=== PATIENT | female | born 1945 | race Caucasian/White ===

== ENCOUNTER → 2023-09-13 12:16 | Outpatient (CLI) | payer MEDICARE, OTHER, SELFPAY ==
--- NOTE | 2023-09-13 12:18 | DI.RAD.S_ITS ---
PROCEDURE: XR CERVICAL SPINE 2V OR 3V INDICATIONS: neck pain TECHNIQUE: 3 view(s) of the cervical spine were acquired. COMPARISON: None. FINDINGS: Bones: No fractures or dislocations to the T1 level. The lateral masses of C1 appear intact on the odontoid view. No suspicious bony lesions. Severe C5-C6, C6-C7 and C7-T1 degenerative disc disease. Moderate C4-C5 degenerative disc disease. Mild facet hypertrophy throughout the cervical spine. Soft tissues: No prevertebral soft tissue swelling. IMPRESSION: 1. Multilevel degenerative disc disease. 2. Multilevel facet arthropathy. 3. No fracture. No acute osseous lesion. If symptoms and/or clinical suspicion for pathology persists, evaluation with MRI should be considered for further assessment. Dictated by: Beth Zhou MD, PhD on 09/13/2023 at 13:32 Approved by: Beth Zhou MD, PhD on 09/13/2023 at 13:33
--- NOTE | 2023-09-13 12:18 | DI.RAD.S_ITS ---
PROCEDURE: XR CHEST 2V INDICATIONS: cough TECHNIQUE: 2 views of the chest were acquired. COMPARISON: [facility], , CHEST 2 VIEW, 07/03/2012, 15:48. FINDINGS: Surgical changes and devices: None. Lungs and pleura: Increased opacification in the lung bases which could represent atelectasis, aspiration or pneumonia. No pleural effusions or pneumothorax. Mediastinum: Mediastinal contours are normal. Heart size is normal. Bones and chest wall: No suspicious bony abnormalities. Soft tissues appear unremarkable. IMPRESSION: Bibasilar opacities which could represent atelectasis, aspiration or pneumonia. Dictated by: Beth Zhou MD, PhD on 09/13/2023 at 13:31 Approved by: Beth Zhou MD, PhD on 09/13/2023 at 13:32
--- NOTE | 2023-09-13 12:46 | DI.RAD.S_ITS ---
PROCEDURE: XR LUMBAR SPINE 2-3V INDICATIONS: scoliosis TECHNIQUE: 3 views of the lumbar spine were acquired. COMPARISON: None. FINDINGS: Bones: 5 [id number] vertebrae are present. There is mild, approximately 5 millimeters of L4-L5 degenerative anterolisthesis. Mild, approximately 5? of convex left lumbar spine curvature. No vertebral body compression fractures. No suspicious bony lesions. Severe L2-L3, L3-L4 and L5-S1 degenerative disc disease. Moderate L5-S1 degenerative disc disease. Moderate L2-L3, L3-L4, L4-L5 and L5-S1 degenerative disc disease. Soft tissues: Overlying bowel gas pattern is normal. No suspicious soft tissue calcifications. IMPRESSION: 1. Multilevel degenerative disc disease. 2. Multilevel facet arthropathy. 3. No fracture. No acute osseous lesion. If symptoms and/or clinical suspicion for pathology persists, evaluation with MRI should be considered for further assessment. 4. Grade 1 L4-L5 degenerative spondylolisthesis. Dictated by: Beth Zhou MD, PhD on 09/13/2023 at 13:33 Approved by: Beth Zhou MD, PhD on 09/13/2023 at 13:35
--- NOTE | 2023-09-13 12:46 | DI.RAD.S_ITS ---
PROCEDURE: XR THORACIC SPINE 2V INDICATIONS: scoliosis TECHNIQUE: 3 views of the thoracic spine were acquired. COMPARISON: None. FINDINGS: Bones: No fractures or dislocations. Mild, approximately 9? of convex right thoracic spine curvature. No suspicious bony lesions. 12 pairs of ribs are noted, and appear intact where visualized. Severe multilevel degenerative disc disease. Moderate facet arthropathy in the lower lumbar spine. Mild facet arthropathy in the upper and midthoracic spine. Soft tissues: No paravertebral stripe thickening. IMPRESSION: 1. Multilevel degenerative disc disease. 2. Multilevel facet arthropathy. 3. No fracture. No acute osseous lesion. If symptoms and/or clinical suspicion for pathology persists, evaluation with MRI should be considered for further assessment. 4. Mild, approximately 9? of convex right thoracic spine curvature. Dictated by: Beth Zhou MD, PhD on 09/13/2023 at 13:35 Approved by: Beth Zhou MD, PhD on 09/13/2023 at 13:37
[2023-09-13 13:08] LABS: Hematocrit 43.2 % (36-46); Hemoglobin 14.8 g/dL (12.0-16.0); Mean Corpuscular HGB Conc 34.2 % (30-36); Mean Corpuscular Hemoglobin 30.9 PG (26-34); Mean Corpuscular Volume 90.4 fL (80-100); Platelet Count 204 X10^3/uL (150-400); Red Blood Cell Count 4.77 X10^6/uL (4.0-5.2); Red Cell Distribution Width 14.1 % (11.6-14.8); White Blood Cell Count 7.6 X10^3/uL (4.5-11.0)
[2023-09-13 13:39] LABS: Alanine Aminotransferase 19 IU/L (<35); Albumin 4.7 g/dL (3.5-5.0); Albumin Globulin Ratio 1.5 (1.0-2.8); Alkaline Phosphatase 60 U/L (38-126); Aspartate Aminotransferase 29 IU/L (14-36); BUN Creatinine Ratio 16.3 (6-22); Bilirubin Total 0.5 mg/dL (0.2-1.3); Blood Urea Nitrogen 17 mg/dL (7-17); Calcium 10.3 mg/dL (8.4-10.2); Carbon Dioxide 29 mmol/L (22-32); Chloride 99 mmol/L (98-107); Cholesterol 268 mg/dL (140-199); Estimated Glomerular Filt Rate 56 mL/min (>60); Globulin 3.1 g/dL (1.7-4.1); Glucose 85 mg/dL (80-110); HDL Cholesterol 82 mg/dL (40-60); HEMOLYSIS < 15 (0-50); LDL Cholesterol Calculated 165 mg/dL (<100); Potassium 4.3 mmol/L (3.4-5.1); Sodium 137 mmol/L (137-145); Total Protein 7.8 g/dL (6.3-8.2); Triglycerides 105 mg/dL (35-150)
[2023-09-13 14:09] LABS: TSH w/ Reflex to FT4 1.78 uIU/mL (0.47-4.68)
== END ==
PROVIDERS: PCP Internal Medicine; Referring Provider Internal Medicine; Visit Provider Internal Medicine
DX: R05.9 Cough, unspecified (principal); E78.2 Mixed hyperlipidemia; M48.9 Spondylopathy, unspecified; M41.9 Scoliosis, unspecified; E03.9 Hypothyroidism, unspecified; M51.34 Other intervertebral disc degeneration, thoracic region; M47.814 Spondylosis without myelopathy or radiculopathy, thoracic region; M43.8X4 Other specified deforming dorsopathies, thoracic region; M51.36 Other intervertebral disc degeneration, lumbar region; M47.816 Spondylosis without myelopathy or radiculopathy, lumbar region; M43.16 Spondylolisthesis, lumbar region; M50.30 Other cervical disc degeneration, unspecified cervical region; M47.812 Spondylosis without myelopathy or radiculopathy, cervical region
CPT/HCPCS: 36415; 71046; 72040; 72070; 72100; 80053; 80061; 84443; 85027

== ENCOUNTER → 2024-03-18 14:46 | Outpatient (CLI) | payer MEDICARE, OTHER, SELFPAY ==
--- NOTE | 2024-03-18 14:48 | DI.RAD.S_ITS ---
PROCEDURE: XR CHEST 2V INDICATIONS: cough TECHNIQUE: 2 views of the chest were acquired. COMPARISON: [facility], CR, XR CHEST 2V, 09/13/2023, 12:29. FINDINGS: Surgical changes and devices: None. Lungs and pleura: Lungs are clear. No pleural effusions or pneumothorax. Mediastinum: Mediastinal contours are normal. Heart size is normal. Bones and chest wall: No suspicious bony abnormalities. Soft tissues appear unremarkable. IMPRESSION: No acute cardiopulmonary pathology. Dictated by: Westley Gan M.D. on 03/18/2024 at 17:18 Approved by: Westley Gan M.D. on 03/18/2024 at 17:18
--- NOTE | 2024-03-18 14:48 | DI.RAD.S_ITS ---
PROCEDURE: XR CERVICAL SPINE 2V OR 3V INDICATIONS: neck pain TECHNIQUE: 3 view(s) of the cervical spine were acquired. COMPARISON: [facility], CR, XR CERVICAL SPINE 2V OR 3V, 09/13/2023, 12:31. FINDINGS: Bones: No fractures or dislocations to the T1 level. Straightening and mild reversal of normal cervical lordosis is seen. There is 3 millimeter anterolisthesis of C3 on C4 and 2 millimeter anterolisthesis of C4 on C5. Loss of disc height, degenerative endplate changes and bilateral facet hypertrophic changes are noted throughout cervical spine more notably at C4-5 through C6-7 levels. The lateral masses of C1 appear intact on the odontoid view. No suspicious bony lesions. Soft tissues: No prevertebral soft tissue swelling. IMPRESSION: No cervical spine fracture or dislocation. Moderate degenerative disc disease in mid to lower cervical spine as described above. Grade 1 anterolisthesis at C3-4 and C4-5 levels as above. Dictated by: Westley Gan M.D. on 03/18/2024 at 17:22 Approved by: Westley Gan M.D. on 03/18/2024 at 17:26
[2024-03-18 17:26] LABS: Aspartate Aminotransferase 29 IU/L (14-36); BUN Creatinine Ratio 23.1 (6-22); Blood Urea Nitrogen 24 mg/dL (7-17); Calcium 9.5 mg/dL (8.4-10.2); Carbon Dioxide 29 mmol/L (22-32); Chloride 107 mmol/L (98-107); Cholesterol 207 mg/dL (140-199); Estimated Glomerular Filt Rate 55 mL/min (>60); Glucose 95 mg/dL (80-110); HDL Cholesterol 77 mg/dL (40-60); HEMOLYSIS < 15 (0-50); LDL Cholesterol Calculated 110 mg/dL (<100); Potassium 4.3 mmol/L (3.4-5.1); Sodium 140 mmol/L (137-145); Triglycerides 99 mg/dL (35-150)
[2024-03-18 18:12] LABS: TSH w/ Reflex to FT4 1.62 uIU/mL (0.47-4.68)
== END ==
PROVIDERS: PCP Internal Medicine; Referring Provider Internal Medicine; Visit Provider Internal Medicine
DX: M50.320 Other cervical disc degeneration, mid-cervical region, unspecified level (principal); M43.12 Spondylolisthesis, cervical region; M48.9 Spondylopathy, unspecified; E78.2 Mixed hyperlipidemia; R05.9 Cough, unspecified; E03.9 Hypothyroidism, unspecified
CPT/HCPCS: 36415; 71046; 72040; 80048; 80061; 84443; 84450

== ENCOUNTER → 2024-09-04 14:23 | Outpatient (CLI) | payer MEDICARE, OTHER, SELFPAY ==
--- NOTE | 2024-09-04 14:25 | DI.RAD.S_ITS ---
PROCEDURE: XR KNEE LT 3V INDICATIONS: left knee pain TECHNIQUE: Four views views of the knee were acquired. COMPARISON: None. FINDINGS: Bones: There are no osseous abnormalities. Joints: Moderate left patellofemoral and medial tibiofemoral degenerative change noted. There is mild right medial tibial femoral degeneration also seen. Mild right medial tibial femoral degeneration seen Soft tissues: 12 mm calcification seen posterior to the left femoral metaphysis. IMPRESSION: Degeneration. . Dictated by: Phani Villarreal M.D. on 09/05/2024 at 8:59 Approved by: Phani Villarreal M.D. on 09/05/2024 at 9:00
[2024-09-04 15:33] LABS: Hemoglobin 14.3 g/dL (12.0-16.0); Mean Corpuscular HGB Conc 34.1 % (30-36); Mean Corpuscular Hemoglobin 30.8 PG (26-34); Mean Corpuscular Volume 90.4 fL (80-100); Platelet Count 198 X10^3/uL (150-400); Red Blood Cell Count 4.64 X10^6/uL (4.0-5.2); Red Cell Distribution Width 14.4 % (11.6-14.8); White Blood Cell Count 7.8 X10^3/uL (4.5-11.0)
[2024-09-04 16:31] LABS: Aspartate Aminotransferase 29 IU/L (14-36); BUN Creatinine Ratio 19.4 (6-22); Blood Urea Nitrogen 20 mg/dL (7-17); Calcium 9.7 mg/dL (8.4-10.2); Carbon Dioxide 30 mmol/L (22-32); Chloride 103 mmol/L (98-107); Cholesterol 179 mg/dL (140-199); Estimated Glomerular Filt Rate 56 mL/min (>60); Glucose 72 mg/dL (80-110); HDL Cholesterol 80 mg/dL (40-60); HEMOLYSIS < 15 (0-50); LDL Cholesterol Calculated 87 mg/dL (<100); Potassium 4.3 mmol/L (3.4-5.1); Sodium 138 mmol/L (137-145); Triglycerides 58 mg/dL (35-150)
[2024-09-04 17:06] LABS: TSH w/ Reflex to FT4 2.86 uIU/mL (0.47-4.68)
== END ==
PROVIDERS: PCP Internal Medicine; Referring Provider Internal Medicine; Visit Provider Internal Medicine
DX: M25.562 Pain in left knee (principal); E78.2 Mixed hyperlipidemia; E03.9 Hypothyroidism, unspecified
CPT/HCPCS: 73562; 80048; 80061; 84443; 84450; 85027

== ENCOUNTER → 2025-08-03 14:38 | Outpatient (CLI) | payer MEDICARE, OTHER, SELFPAY ==
[2025-08-03 15:18] LABS: Hematocrit 32.7 % (36-46); Hemoglobin 11.0 g/dL (12.0-16.0); Mean Corpuscular HGB Conc 33.6 % (30-36); Mean Corpuscular Hemoglobin 30.5 PG (26-34); Mean Corpuscular Volume 90.8 fL (80-100); Platelet Count 241 X10^3/uL (150-400)
[2025-08-03 15:31] LABS: Appearance Urine UA SL CLOUDY; Bilirubin Urine UA NEGATIVE (NEGATIVE); Color Urine UA YELLOW; Glucose Urine UA NEGATIVE (Negative); Ketones Urine UA 1+ (NEGATIVE); Leukocyte Esterase Urine UA 1+ (NEGATIVE); Nitrite Urine UA NEGATIVE (Negative); Occult Blood Urine UA NEGATIVE (Negative); Protein Urine UA NEGATIVE (Negative); Specific Gravity Urine UA 1.010 (1.000-1.035); Urobilinogen Urine UA 0.2 E.U./dL (0.2)
[2025-08-03 15:33] LABS: pH Urine UA 6.0 (4.5-8.0)
[2025-08-03 15:40] LABS: Culture Indicated Urine Specimen Cultured
[2025-08-03 15:53] LABS: Alanine Aminotransferase 17 IU/L (<35); Albumin 4.5 g/dL (3.5-5.0); Albumin Globulin Ratio 2.0 (1.0-2.8); Alkaline Phosphatase 67 U/L (38-126); Blood Urea Nitrogen 27 mg/dL (7-17); Calcium 9.8 mg/dL (8.4-10.2); Carbon Dioxide 27 mmol/L (22-32); Chloride 102 mmol/L (98-107); Cholesterol 215 mg/dL (140-199); Estimated Glomerular Filt Rate 57 mL/min (>60); Globulin 2.3 g/dL (1.7-4.1); Glucose 89 mg/dL (70-99); HDL Cholesterol 91 mg/dL (40-60); HEMOLYSIS < 15 (0-50); Potassium 4.4 mmol/L (3.4-5.1); Sodium 137 mmol/L (137-145); Total Protein 6.8 g/dL (6.3-8.2); Triglycerides 53 mg/dL (35-150)
== END ==
PROVIDERS: PCP Internal Medicine; Referring Provider Internal Medicine; Visit Provider Internal Medicine
DX: E03.9 Hypothyroidism, unspecified (principal); E78.2 Mixed hyperlipidemia; N30.00 Acute cystitis without hematuria
CPT/HCPCS: 36415; 80053; 80061; 81001; 85027; 87086

== ENCOUNTER → 2025-08-25 15:30 | Outpatient (CLI) | payer MEDICARE, OTHER, SELFPAY ==
--- NOTE | 2025-08-25 15:33 | DI.RAD.S_ITS ---
PROCEDURE: XR LUMBAR SPINE MIN 4V INDICATIONS: pain TECHNIQUE: 5 views of the lumbar spine acquired, including flexion and extension views. COMPARISON: [facility], CR, XR LUMBAR SPINE 2-3V, 09/13/2023, 12:31. FINDINGS: Bones: 5 nonrib-bearing vertebrae are present. Increased grade 1 degenerative anterolisthesis of L4 on L5 when compared 01/15/2023. Mild retrolisthesis of L3 on L4. Similar severe L2-L3, L3-L4, L4-L5 and L5-S1 degenerative disc disease. Facet arthropathy most prominent at L4-L5 and L5-S1. No vertebral body compression fractures. No suspicious bony lesions. Soft tissues: Overlying bowel gas pattern is normal. No suspicious soft tissue calcifications. Flexion/extension: There is normal range of motion, without evidence of instability. IMPRESSION: 1. Multilevel degenerative change of the lumbar spine, including multilevel facet arthropathy and degenerative disc disease, minimally progressed since 2022. 2. Mildly increased degenerative grade I anterolisthesis of L4 on L5. 3. No acute osseous abnormality. Dictated by: Khadar Wilhelm M.D. on 08/25/2025 at 18:27 Approved by: Khadar Wilhelm M.D. on 08/25/2025 at 18:33
--- NOTE | 2025-08-25 15:33 | DI.RAD.S_ITS ---
PROCEDURE: XR SHOULDER LT MIN 2V INDICATIONS: pain TECHNIQUE: 3 views of the shoulder were acquired. COMPARISON: None. FINDINGS: Bones: Moderate degenerative changes of the acromioclavicular joint. Severe glenohumeral joint degenerative changes with large inferior osteophytes. No fractures or dislocations. No suspicious bony lesions. Visualized ribs appear intact. Soft tissues: No suspicious soft tissue calcifications. IMPRESSION: 1. No acute bony abnormality. 2. Severe glenohumeral and moderate acromioclavicular joint degenerative changes. Dictated by: Khadar Wilhelm M.D. on 08/25/2025 at 18:24 Approved by: Khadar Wilhelm M.D. on 08/25/2025 at 18:26
[2025-08-25 16:49] LABS: Add Manual Diff / Slide Review NO; Hematocrit 21.1 % (36-46); Hemoglobin 7.1 g/dL (12.0-16.0); Lymphocytes Absolute Auto 2000 /uL (1100-4500); Mean Corpuscular HGB Conc 33.6 % (30-36); Mean Corpuscular Hemoglobin 27.9 PG (26-34); Mean Corpuscular Volume 82.9 fL (80-100); Platelet Count 250 X10^3/uL (150-400)
[2025-08-25 17:03] LABS: Reticulocyte Count, Percent 2.6 % (1.1-2.6)
[2025-08-25 17:10] LABS: HEMOLYSIS < 15 (0-50); Iron 20 ug/dL (37-170)
[2025-08-25 17:21] LABS: Percent Iron Saturation 5 % (15-50); Total Iron Binding Capacity 410 ug/dL (265-497)
[2025-08-25 17:22] LABS: Transferrin 354 mg/dL (206-381)
[2025-08-25 17:43] LABS: TSH w/ Reflex to FT4 1.69 uIU/mL (0.47-4.68)
[2025-08-25 17:55] LABS: Ferritin 7 ng/mL (11-264)
[2025-08-25 18:04] LABS: Vitamin B12 Reflex MMA if <400 > 1000 pg/mL (239-931)
== END ==
PROVIDERS: PCP Internal Medicine; Referring Provider Internal Medicine; Visit Provider Internal Medicine
DX: M54.50 Low back pain, unspecified (principal); D64.9 Anemia, unspecified; E03.9 Hypothyroidism, unspecified; M75.82 Other shoulder lesions, left shoulder; G89.29 Other chronic pain; E53.8 Deficiency of other specified B group vitamins
CPT/HCPCS: 72110; 73030; 82607; 82728; 83540; 83550; 84443; 85025; 85045

== ENCOUNTER 2025-09-11 11:54 | Day surgery (SDC) | payer MEDICARE, OTHER, SELFPAY ==
--- NOTE | 2025-09-11 | PATH_ITS ---
[facility] Accession Number: [id number] No. of containers..02 Tissue . 01 Material submitted: . PART A: colon - COLON, ASCENDING POLYP PART B: colon - COLON, TRANSVERSE POLYP . 01 Diagnosis: A. ASCENDING COLON POLYP: Tubular adenoma. Melanosis coli. . B. TRANSVERSE COLON POLYP: Tubular adenoma. Melanosis coli. MRV 09/25/2025 1317 Local . 01 Electronically signed: . Neymar Vaughn MD, PhD, Pathologist NPI- [id number] . 01 Gross description: . Received are two formalin-filled containers both labeled with the patient's name. . A. In a container labeled ascending colon polyp, is one fragment of dunham, soft tissue which measures 0.9 x 0.4 x 0.2 cm. The specimen is totally submitted in cassette A1. B. In a container labeled trans. colon poilyp, is one fragment of dunham, soft tissue which measures 0.9 x 0.6 x 0.4 cm. The specimen is totally submitted in cassette B1. ([id number]) /KERI 09/20/2025924 Local . 01 Pathologist provided ICD-10: D12.2, D12.3, K52.89 . 01 CPT . 117426, 021994 Specimen Comment: A courtesy copy of this report has been sent to [phone] Performed at: [address] [id number] MD Daniel Tyson MD Phone: [phone]
[2025-09-11 12:29] VITALS: BP 165/72; PULSE 79; RESP 16; TEMP 36.8; O2SAT 97
[2025-09-11] MEDS: LACTATED RINGERS 1,000 ML 42 ML IV (12:39)
--- NOTE | 2025-09-11 13:30 | P.HP_ITS ---
History of Present Illness History of Present Illness Date Patient Seen: 09/11/25 Time Patient Seen: 13:30 Chief complaint: SDC Narrative: Nicolas is a 71-year-old woman with anemia. See the office note for details. [facility] Medical History (Updated 08/25/25 @ 12:56 by Christopher Duggan MD) Anemia Left inguinal hernia Tendonitis of left rotator cuff Chronic low back pain Cervical spine disease History of colonic polyps Rosacea PTSD (post-traumatic stress disorder) Benign familial tremor Scoliosis Disease of spine Hemorrhoid Thyroid nodule Allergic rhinitis Generalized anxiety disorder Depression, major, recurrent Menopausal syndrome Mixed hyperlipidemia Acquired hypothyroidism Surgical History Anesthesia History of hysterectomy (~1997) Melanoma (~05/30/00) Family History Father Aneurysm Mother Cancer Grandmother Cancer Grandfather History of heart disease Grandmother Stroke Social History alcohol intake: never Meds Home Medications and Allergies Home Medications ?Medication ?Instructions ?Recorded ?Confirmed ?Type bupropion HCl 150 mg tablet,12 hr 150 mg PO BID #180 e a 12/05/24 08/28/25 Rx sustained-release testosterone cypionate 200 mg/mL 50 mg (0.25 mL) IM Q4 W #3 mL 12/11/24 08/28/25 Rx intramuscular oil escitalopram oxalate 10 mg tablet 10 mg PO DAILY #90 t abs 03/23/25 08/28/25 Rx estradiol 0.1 mg/24 hr weekly 1 patch transdermal QWEE K #16 ea 03/23/25 08/28/25 Rx transdermal patch levothyroxine 112 mcg tablet 112 mcg PO DAILY #90 tabs 03/23/25 08/28/25 Rx rosuvastatin 10 mg tablet 10 mg PO DAILY #90 tabs 02/2508/28/25 Rx Parking Permit... #1 ea 08/25/25 08/28/25 Rx omeprazole 40 mg capsule,delayed 40 mg PO BID #180 cap s 08/26/25 09/11/25 Rx release Allergies Allergy/AdvReac Type Severity Reaction Status Date / Time No Known Drug Allergies Allergy Verified 09/11/25 12:25 Exam Vital Signs (past 8 hours): - 09/11/25 12:29 Temperature 98.2 F Pulse Rate 79 Respiratory Rate 16 Blood Pressure 165/72 H Pulse Oximetry 97 Oxygen Delivery Method Room Air Oxygen Delivery Method Room Air Const General: No acute distress Assessment & Plan Assessment and plan (1) Anemia: Qualifiers: Anemia type: unspecified type Qualified Code(s): D64.9 - Anemia, unspecified Status: Acute Plan EGD and colonoscopy for anemia Time-Based Coding :: [TOTAL MINUTES] spent with patient and on the chart (including review of chart, obtaining history, exam, reviewing outside data, placing orders, documenting exam and treatment plan, and counseling patient) on [DATE]. [employer] Office Employee Document charge(s): No
[2025-09-11 14:13] VITALS: BP 160/70; BP 171/74; PULSE 73; PULSE 75; RESP 16; TEMP 36.2; O2SAT 98
[2025-09-11 14:20] VITALS: BP 160/74; PULSE 74; RESP 16; TEMP 36.2; O2SAT 98
--- NOTE | 2025-09-11 14:24 | PM.OP.EC ---
Operative Date/Time/Diagnoses Date of procedure: 09/11/25 Time of procedure: 14:24 Pre-op diagnosis: Anemia Post-op diagnosis: same Procedure & Clinicians Study performed: EGD and colonoscopy Same procedure(s) as scheduled: Yes Surgeon: Ronaldo Clinton Anesthesia Type: MAC +/- Procedure Notes Procedure in detail: Surgeon: Ronaldo Clinton MD Anesthesia: Michelle Kerry MAJOR ACCOUNT MANAGER Procedure in detail: A timeout was performed. A bite blocked was placed and monitors were attached to the patient. The patient was positioned in the left lateral decubitus position. Sedation was administered. Once the patient was sedated the endoscope was inserted through the bite block and passed through the esophagus and stomach and into the duodenum. No abnormalities were seen. We then withdrew the scope into the stomach. The endoscope was retroflexed and no hiatal hernia was seen. The endoscope was straightned and withdrawn into the esophagus. No abnormalities were seen in the esophagus. EGD findings: Normal EGD Next we repositioned the patient for a colonoscopy. A digital rectal exam was performed and was normal. The colonoscope was inserted and advanced to the cecum. The appendiceal orifice was identified and photographed. The scope was slowly withdrawn over greater than 6 minutes. Melanosis coli was noted diffusely to the colon. There was a 7 mm polyp in the ascending colon removed with a cold snare. There was a 7 mm polyp removed from the transverse colon with a cold snare. The scope was retroflexed in the rectum and no other abnormalities were found. Colonoscopy findings: 7 mm polyp in the ascending colon and 7 mm polyp in the transverse colon Total procedural EBL: 5 mL Scope withdrawal time: 10 minutes Sedation minutes: 23 minutes Post-procedure Disposition: PACU
[2025-09-11 14:36] VITALS: BP 156/76; PULSE 74; RESP 16; TEMP 36.2; O2SAT 98
== END 2025-09-11 14:30 | disposition home or self-care (01) ==
PROVIDERS: PCP Internal Medicine; Referring Provider Surgery; Visit Provider Surgery
PROC: 0DJ08ZZ Inspection of Upper Intestinal Tract, Via Natural or Artificial Opening Endoscopic (ICD-10-PCS; CPT 45385; principal; 2025-09-11 15:15)
PROC: 0DJD8ZZ Inspection of Lower Intestinal Tract, Via Natural or Artificial Opening Endoscopic (ICD-10-PCS; CPT 45378; 2025-09-11 15:15)
DX: D64.9 Anemia, unspecified (principal); K63.89 Other specified diseases of intestine; D12.2 Benign neoplasm of ascending colon; D12.3 Benign neoplasm of transverse colon
CPT/HCPCS: 45385; 43235; J2704; J7120

== ENCOUNTER → 2025-10-07 12:00 | Outpatient (CLI) | payer MEDICARE, OTHER, SELFPAY ==
--- NOTE | 2025-10-07 12:02 | DI.CT.S_ITS ---
PROCEDURE: CT CHEST ABD PEL W CON
--- NOTE | 2025-10-07 12:02 | DI.MRI.S_ITS ---
PROCEDURE: MR LUMBAR SPINE WO CON
[2025-10-07 12:41] LABS: Estimated Glomerular Filt Rate 59 mL/min (>60)
== END ==
LOC: MRI 12:01
PROVIDERS: PCP Internal Medicine; Referring Provider Surgery; Visit Provider Surgery
DX: D64.9 Anemia, unspecified (principal); E07.9 Disorder of thyroid, unspecified; R91.8 Other nonspecific abnormal finding of lung field; N28.1 Cyst of kidney, acquired; M51.360 Other intervertebral disc degeneration, lumbar region with discogenic back pain only; M51.370 Other intervertebral disc degeneration, lumbosacral region with discogenic back pain only; M48.07 Spinal stenosis, lumbosacral region; M48.061 Spinal stenosis, lumbar region without neurogenic claudication; M43.16 Spondylolisthesis, lumbar region; M47.816 Spondylosis without myelopathy or radiculopathy, lumbar region; M47.817 Spondylosis without myelopathy or radiculopathy, lumbosacral region; G89.29 Other chronic pain
CPT/HCPCS: 36415; 71260; 72148; 74177; 82565; Q9967

== ENCOUNTER → 2025-10-20 13:03 | Outpatient (CLI) | payer MEDICARE, OTHER, SELFPAY ==
--- NOTE | 2025-10-20 13:10 | DI.CT.S_ITS ---
PROCEDURE: CT CHEST HIGH RESOLUTION INDICATIONS: abnormal CT scan of chest TECHNIQUE: Noncontrast 1.0 and 5.0 mm thick contiguous axial sections from the pulmonary apex to the posterior costophrenic angles, with 7 mm thick coronal and sagittal MIP reformats. 1 mm thick dynamic expiratory images acquired through the upper, mid, and lower lungs. 1.0 mm thick axial sections acquired from the ilene to the posterior costophrenic angles in the prone end-inspiration position. For radiation dose reduction, the following was used: automated exposure control, adjustment of mA and/or kV according to patient size. COMPARISON: [facility], CT, CT CHEST ABD PEL W CON, 10/07/2025, 13:11. FINDINGS: Image quality: Diagnostic Lungs and pleura: Persistent 4-5 mm endobronchial nodule versus mucous plug in the right mid lung (3/119). Another suspected endobronchial nodule measuring 3-4 mm versus mucous plug is seen in the right upper lung (3/79). Multiple other nodules and possible mucous plugs seen in other parts of the lungs, none measuring over 6 mm. No airspace consolidation. No pleural effusions. Possible nodular atelectasis again seen in the left lower lung. On expiratory views, mild diffuse air trapping is present. No significant changes on prone imaging. Mild basal reticulation is seen. Mediastinum, heart, and esophagus: Coronary calcifications. Normal heart size. No lymph nodes enlarged by size criteria. Chest wall and thyroid: 5 cm rim calcified lesion seen in the right thyroid. No axillary lymph nodes enlarged by size criteria. Upper abdomen: No gross abnormality on these noncontrast images. Bones: There are degenerative osseous findings. No aggressive appearing osseous abnormality. Advanced shoulder arthritic changes. Nonspecific, diffusely heterogeneous marrow attenuation. IMPRESSION: Multiple small endobronchial nodules versus mucous plugs. Consider 3 to 6-month surveillance CT (regular chest CT is sufficient) Large calcified right thyroid nodule. Ultrasound follow-up suggested Other findings above. Dictated by: Michael Rosen M.D. on 10/20/2025 at 14:22 Approved by: Michael Rosen M.D. on 10/20/2025 at 14:32
--- NOTE | 2025-10-20 13:10 | DI.US.S_ITS ---
PROCEDURE: US THYROID INDICATIONS: f/u R thyroid mass seen on CT TECHNIQUE: Real-time scanning was performed of the thyroid gland, with image documentation. COMPARISON: [facility], CT, CT CHEST HIGH RESOLUTION, 10/20/2025, 13:12. [facility], CT, CT CHEST ABD PEL W CON, 10/07/2025, 13:11. FINDINGS: Thyroid: Right lobe measures 6.2 x 4 x 5.2 cm. Left lobe measures 2.9 x 0.9 x 0.6 cm. Isthmus is 0.2 cm thick. Echotexture is heterogeneous. Nodule number: 1 Location: Right mid thyroid Size: 4.8 x 3.9 x 5.2 cm. Composition: Solid Echogenicity: Isoechoic Shape: wider than tall. Margins: Ill-defined Echogenic foci: Larger calcifications are seen. Total points: 6 ACR TI-RADS category: 4 IMPRESSION: There is a 5.2 cm right thyroid nodule seen. By published criteria, ultrasound-guided fine-needle aspiration is now recommended. ACR TI-RADS definitions and recommendations: TI-RADS 1 (benign): 0 points. FNA not needed. TI-RADS 2 (not suspicious): 2 points. FNA not needed. TI-RADS 3: 3 points. * FNA if 2.5 cm or larger, follow up if 1.5 cm or larger (at 1, 3, and 5 years). TI-RADS 4: 4-6 points. * FNA if 1.5 cm or larger, follow up if 1 cm or larger (at 1, 2, 3, and 5 years). TI-RADS 5: 7 points or more. * FNA if 1 cm or larger, follow up if 0.5 cm or larger (every year for 5 years). Dictated by: Yonathan Reis M.D. on 10/20/2025 at 13:26 Approved by: Yonathan Reis M.D. on 10/20/2025 at 13:27
== END ==
PROVIDERS: PCP Internal Medicine; Referring Provider Surgery; Visit Provider Surgery
DX: E07.9 Disorder of thyroid, unspecified (principal); E04.1 Nontoxic single thyroid nodule; I25.10 Atherosclerotic heart disease of native coronary artery without angina pectoris; R91.8 Other nonspecific abnormal finding of lung field; D64.9 Anemia, unspecified
CPT/HCPCS: 71250; 76536

== ENCOUNTER → 2025-10-27 14:05 | Outpatient (CLI) | payer MEDICARE, OTHER, SELFPAY ==
[2025-10-27 14:41] LABS: Hematocrit 37.5 % (36-46); Hemoglobin 12.4 g/dL (12.0-16.0); Mean Corpuscular HGB Conc 33.0 % (30-36); Mean Corpuscular Hemoglobin 28.0 PG (26-34); Mean Corpuscular Volume 84.8 fL (80-100); Platelet Count 204 X10^3/uL (150-400)
[2025-10-27 15:25] LABS: Blood Urea Nitrogen 26 mg/dL (7-17); Carbon Dioxide 30 mmol/L (22-32); Chloride 103 mmol/L (98-107); Cholesterol 209 mg/dL (140-199); Estimated Glomerular Filt Rate 50 mL/min (>60); HDL Cholesterol 99 mg/dL (40-60); HEMOLYSIS < 15 (0-50); Triglycerides 65 mg/dL (35-150)
[2025-10-27 15:26] LABS: Calcium 9.5 mg/dL (8.4-10.2); Glucose 69 mg/dL (70-99); Potassium 4.3 mmol/L (3.4-5.1); Sodium 137 mmol/L (137-145)
[2025-10-27 16:00] LABS: Ferritin 19 ng/mL (11-264)
[2025-10-27 16:36] LABS: HEMOLYSIS < 15 (0-50); Iron 44 ug/dL (37-170)
[2025-10-27 16:47] LABS: Percent Iron Saturation 13 % (15-50); Total Iron Binding Capacity 351 ug/dL (265-497); Transferrin 306 mg/dL (206-381)
== END ==
PROVIDERS: PCP Internal Medicine; Referring Provider Internal Medicine; Visit Provider Internal Medicine
DX: D64.9 Anemia, unspecified (principal); E78.2 Mixed hyperlipidemia
CPT/HCPCS: 36415; 80048; 80061; 82728; 83540; 83550; 85027